=== PATIENT | female | born 1960 | race Caucasian/White ===

== ENCOUNTER 2020-11-05 17:24 | Outpatient (NON) | payer BC, SELFPAY | END 2020-11-05 17:25 | LOC: ANHLAB 17:26 | PROVIDERS: PCP Family Medicine; Visit Provider Otolaryngology | DX: J34.89 Other specified disorders of nose and nasal sinuses (principal); G96.00 Cerebrospinal fluid leak, unspecified | CPT/HCPCS: 36415 ==

== ENCOUNTER 2020-11-08 08:15 | Outpatient (CLI) | payer BC, SELFPAY ==
--- NOTE | ~2020-11-08 | MM_ITS ---
EXAMINATION: MM screening [facility] BI w rj HISTORY: Screening mammogram TECHNIQUE: Craniocaudal and mediolateral oblique 3-D tomosynthesis images were obtained and synthetic 2-D images were generated. CAD analysis was submitted and interpreted. COMPARISON: 11/03/2019, 10/13/2018, 10/11/2017 BREAST PARENCHYMAL COMPOSITION: The breasts are heterogeneously dense, which may obscure small masses . FINDINGS: There is no evidence of suspicious mass, calcification, or architectural distortion to sugg est malignancy in either breast. There has been no suspicious interval change. IMPRESSION: 1. No mammographic evidence of malignancy. 2. Recommend routine screening mammography in one year. BI-RADS Category 1: Negative Reviewed, dictated and finalized at location A. NESS SPA MANAGER
== END 2020-11-08 08:16 | disposition home or self-care (01) ==
LOC: ANHIMG 08:19
PROVIDERS: PCP Family Medicine; Visit Provider Obstetrics & Gynecology
DX: Z12.31 Encounter for screening mammogram for malignant neoplasm of breast (principal)
CPT/HCPCS: 77063; 77067

== ENCOUNTER 2021-11-18 08:23 | Outpatient (CLI) | payer BC, SELFPAY ==
--- NOTE | ~2021-11-18 | MM_ITS ---
EXAMINATION: MM screening [facility] BI w rj HISTORY: Screening TECHNIQUE: Craniocaudal and mediolateral oblique 3-D tomosynthesis images were obtained and synthetic 2-D images were generated. CAD analysis was submitted and interpreted. COMPARISON: Comparison to multiple prior studies sequentially, with oldest reviewed study dated 08/01. BREAST PARENCHYMAL COMPOSITION: The breasts are heterogenously dense, which may obscure small masses. FINDINGS: There is no evidence of suspicious mass, calcification, or architectural distortion to sugg est malignancy in either breast. There has been no suspicious interval change. IMPRESSION: 1. No mammographic evidence of malignancy. 2. Recommend routine screening mammography in one year. BI-RADS Category 1: Negative Reviewed, dictated and finalized at location A. H OUT CREW MEMBER
== END 2021-11-18 08:24 | disposition home or self-care (01) ==
LOC: ANHIMG 08:27
PROVIDERS: PCP Family Medicine; Visit Provider Obstetrics & Gynecology
DX: Z12.31 Encounter for screening mammogram for malignant neoplasm of breast (principal)
CPT/HCPCS: 77063; 77067

== ENCOUNTER 2022-08-27 16:55 | Outpatient (CLI) | payer BC, SELFPAY ==
--- NOTE | ~2022-08-27 | XR_ITS ---
EXAMINATION: XR chest 2V 08/27/2022 17:08 INDICATION: Cough. PROCEDURE: 2 view chest COMPARISON: 11/17/2017 FINDINGS: The lungs are clear. The cardiomediastinal silhouette is within normal limits. There are no pleural effusions. There is no pneumothorax suspected. IMPRESSION: 1: NO ACUTE CARDIOPULMONARY DISEASE. Reviewed, dictated and finalized at location B.
== END 2022-08-27 16:56 | disposition home or self-care (01) ==
LOC: ANHIMG 16:57
PROVIDERS: PCP Family Medicine; Visit Provider Nurse Practitioner
DX: R05.9 Cough, unspecified (principal)
CPT/HCPCS: 71046

== ENCOUNTER 2022-11-20 08:44 | Outpatient (CLI) | payer BC, SELFPAY ==
--- NOTE | ~2022-11-20 | MM_ITS ---
EXAMINATION: MM screening [facility] BI w rj HISTORY: Screening mammogram TECHNIQUE: Craniocaudal and mediolateral oblique 3-D tomosynthesis images were obtained and synthetic 2-D images were generated. CAD analysis was submitted and interpreted. COMPARISON: 11/18/2021, 11/08/2020, 11/03/2019 BREAST PARENCHYMAL COMPOSITION: The breasts are heterogeneously dense, which may obscure small masses . FINDINGS: RIGHT BREAST: No suspicious mass, calcification, or architectural distortion are identified to sugges t malignancy. There has been no suspicious interval change. LEFT BREAST: There is a possible mass in the middle third of the outer breast best appreciated 5 cm f rom the nipple on the craniocaudal view. IMPRESSION: 1. Possible left breast mass. 2. Additional mammographic views and possible breast ultrasound are recommended. BI-RADS Category 0: Incomplete: Needs additional imaging evaluation. Reviewed, dictated and finalized at location A. CLEANER IMPRESSION: 1. Possible left breast mass. 2. Additional mammographic views and possible breast ultrasound are recommended . BI-RADS Category 0: Incomplete: Needs additional imaging evaluation.
== END 2022-11-20 08:45 | disposition home or self-care (01) ==
LOC: ANHIMG 08:46
PROVIDERS: PCP Family Medicine; Visit Provider Obstetrics & Gynecology
DX: Z12.31 Encounter for screening mammogram for malignant neoplasm of breast (principal); R92.8 Other abnormal and inconclusive findings on diagnostic imaging of breast
CPT/HCPCS: 77063; 77067

== ENCOUNTER 2022-12-17 13:14 | Outpatient (CLI) | payer BC, SELFPAY ==
--- NOTE | ~2022-12-17 | MMUS_ITS ---
EXAMINATION: MM diagnostic [facility] LT w rj, US breast LT limited HISTORY: Possible mass in middle third of outer left breast reported on 11/20/2022 screening mammogram TECHNIQUE: Additional 3-D tomosynthesis images of the left were performed and synthetic 2-D images we re generated. CAD analysis was submitted and interpreted. High resolution upper outer and lower-outer quadrant left breast ultrasound was performed. COMPARISON: 11/20/2022 bilateral screening mammogram FINDINGS: MAMMOGRAPHIC FINDINGS: No suspicious mass or architectural distortion, malignant calcification, skin thickening or retractio n is evident on these supplemental views. ULTRASOUND: Ultrasound imaging of the upper outer and lower-outer quadrants of the left breast was performed. 2:00 2 cm from nipple: 3.6 x 5.3 mm simple cyst without internal vascularity or posterior shadowing. No other significant abnormality. IMPRESSION: 1. Benign 5.3 mm cyst at breast 2:00 2 cm from nipple 2. Routine annual mammographic screening is recommended BI-RADS Category 2: Benign finding(s). Reviewed, dictated and finalized at location A. SH MIXER IMPRESSION: 1. Benign 5.3 mm cyst at breast 2:00 2 cm from nipple 2. Routine annual mammographic screening is recommended BI-RADS Category 2: Benign finding(s).
== END 2022-12-17 13:15 | disposition home or self-care (01) ==
PROVIDERS: PCP Family Medicine; Visit Provider Obstetrics & Gynecology
DX: R92.8 Other abnormal and inconclusive findings on diagnostic imaging of breast (principal)
CPT/HCPCS: 76642; 77061; 77065; G0279

== ENCOUNTER → 2023-02-16 13:59 | Outpatient (CLI) | payer BC, SELFPAY ==
--- NOTE | ~2023-02-16 | XR_ITS ---
EXAMINATION: XR chest 2V 02/16/2023 14:09 INDICATION: Shortness of breath and cough PROCEDURE: 2 view chest COMPARISON: 08/27/2022 FINDINGS: The lungs are clear. The cardiomediastinal silhouette is within normal limits. There are no pleural effusions. There is no pneumothorax suspected. IMPRESSION: 1: NO ACUTE CARDIOPULMONARY DISEASE. Reviewed, dictated and finalized at location A.
== END ==
PROVIDERS: PCP Family Medicine; Visit Provider Family Medicine
DX: R06.02 Shortness of breath (principal)
CPT/HCPCS: 71046

== ENCOUNTER 2023-03-08 08:08 | Outpatient (CLI) | payer BC, SELFPAY ==
--- NOTE | ~2023-03-08 | CT_ITS ---
EXAMINATION: CTA chest PE protocol DATE: 03/08/2023 08:38 CDT INDICATION: Shortness of breath and chest pain TECHNIQUE: Computed tomographic angiography (CTA) of the chest was performed with 100 mL Omnipaque-35 0 intravenous contrast. The dose-length product was 180.01 mGy-cm. Maximum intensity projection 3D-re constructions of the aorta and other arteries were constructed by the technologist on a separate work station. Automated exposure control and iterative reconstruction technique were employed. COMPARISON: None. FINDINGS: Study is technically adequate without evidence for pulmonary embolism. No thoracic lymphade nopathy. No significant pleural or pericardial effusion. No endobronchial lesions. No focal airspace consolidation. No pneumothorax. No suspicious pulmonary nodules or masses. Mild thoracic lymphadenopa thy. IMPRESSION: 1. No acute cardiopulmonary disease. No evidence for pulmonary embolism. Reviewed, dictated and finalized at location B.
[2023-03-08 08:29] LABS: Estimated Glomerular Filt Rate > 60
--- NOTE | 2023-03-08 16:55 | WPDPFTINT ---
PFT Procedure Performed PFT Procedure Performed Spirometry with Pre/Post Bronchodilator Plethysmography (Lung Vol) Diffusing Cap (DLCO) Flow Vol Loop PFT Interpretation This is a pulmonary function test with pre and post-bronchodilator spirometry, plethysmography and diffusing capacity. The test was performed and results interpreted in accordance with the 2019 and 2005 ATS/ERS Task Force guidelines respectively using the Global Lung Function Initiative-2012 reference equations. Patient demonstrated good effort and cooperation. Reproducibility criteria were met. The quality of the pre bronchodilator spirometry maneuver was Grade A and post bronchodilator spirometry maneuver was Grade A. Findings: Spirometry: The contour the inspiratory and expiratory flow tracing are normal. The pre bronchodilator FVC is 3.68 L, 116% predicted. The pre bronchodilator FEV1 is 2.69 L, 108% predicted. The pre bronchodilator FEV1: FVC ratio 73%. The post bronchodilator FVC is 3.47 L, representing a 6% decrease. The post bronchodilator FEV1 is 2.79 L, representing a 4% increase. The post bronchodilator FEV1: FVC ratio is 80%. Plethysmography: The total lung capacity is 4.98 L, 96% predicted. The functional residual capacity is 2.74 L, 93% predicted. The residual volume is 1.30 L, 62% predicted. Diffusion capacity: The diffusing capacity unadjusted for hemoglobin and carboxyhemoglobin is 20.8, 96% predicted. The diffusing capacity adjusted for alveolar volume is 4.29, 99% predicted. Impression: The spirometry is normal without evidence of an obstructive abnormality. There is no significant improvement after inhaling a single dose of albuterol. The lung volumes are normal. The diffusing capacity is normal. There are no prior studies for comparison
== END 2023-03-08 08:09 | disposition home or self-care (01) ==
PROVIDERS: Visit Provider Physician Assistant
DX: R06.02 Shortness of breath (principal)
CPT/HCPCS: 71275; 94060; 94726; 94729; Q9967

== ENCOUNTER 2023-12-31 09:44 | Outpatient (CLI) | payer BC, SELFPAY ==
--- NOTE | ~2023-12-31 | MM_ITS ---
EXAMINATION: MM screening [facility] BI w rj HISTORY: Screening TECHNIQUE: Craniocaudal and mediolateral oblique 3-D tomosynthesis images were obtained and synthetic 2-D images were generated. CAD analysis was submitted and interpreted. COMPARISON: Comparison to multiple prior studies sequentially, with oldest reviewed study dated 10/01. BREAST PARENCHYMAL COMPOSITION: The breasts are heterogeneously dense, which may obscure small masses . FINDINGS: There is a new mass in the upper outer quadrant of the left breast. The right breast is sta ble without evidence for malignancy. IMPRESSION: 1. New left breast mass, upper outer quadrant. 2. Additional mammographic views and possible breast ultrasound are recommended. BI-RADS Category 0: Incomplete: Needs additional imaging evaluation. Reviewed, dictated and finalized at location A. HER AIDE IMPRESSION: 1. New left breast mass, upper outer quadrant. 2. Additional mammographic views and possible breast ultrasound are recommended . BI-RADS Category 0: Incomplete: Needs additional imaging evaluation.
== END 2023-12-31 09:45 | disposition home or self-care (01) ==
LOC: ANHIMG 09:48
PROVIDERS: PCP Family Medicine; Visit Provider Obstetrics & Gynecology
DX: Z12.31 Encounter for screening mammogram for malignant neoplasm of breast (principal); R92.8 Other abnormal and inconclusive findings on diagnostic imaging of breast
CPT/HCPCS: 77063; 77067

== ENCOUNTER 2024-01-21 13:10 | Outpatient (CLI) | payer BC, SELFPAY ==
--- NOTE | ~2024-01-21 | MMUS_ITS ---
EXAMINATION: MM diagnostic patrick LT w rj, US breast LT limited HISTORY: Follow-up left breast mass TECHNIQUE: Additional 3-D tomosynthesis images of the left breast were performed and synthetic 2-D im ages were generated. CAD analysis was submitted and interpreted. High resolution Limited left breast ultrasound was performed. COMPARISON: Comparison to multiple prior studies sequentially, with oldest reviewed study dated 12/2019. BREAST PARENCHYMAL COMPOSITION: Dense: The breasts are heterogeneously dense, which may obscure small masses FINDINGS: MAMMOGRAPHIC FINDINGS: There are no suspicious masses, calcifications or architectural distortion in the left breast to sugg est malignancy. ULTRASOUND: Limited left breast ultrasound: Normal heterogeneous echotexture without focal solid or cystic mass. IMPRESSION: 1. No evidence for malignancy in the left breast. 2. Routine yearly screening mammogram and regular clinical breast examination are recommended. BI-RADS Category 1: Negative Reviewed, dictated and finalized at location A. IMPRESSION: 1. No evidence for malignancy in the left breast. 2. Routine yearly screening mammogram and regular clinical breast examination a re recommended. BI-RADS Category 1: Negative
== END 2024-01-21 13:11 | disposition home or self-care (01) ==
LOC: ANHIMG 13:13
PROVIDERS: PCP Family Medicine; Visit Provider Obstetrics & Gynecology
DX: R92.8 Other abnormal and inconclusive findings on diagnostic imaging of breast (principal)
CPT/HCPCS: 76642; 77061; 77065; G0279

== ENCOUNTER 2024-11-09 11:05 | Outpatient (CLI) | payer MEDICARE, BC, SELFPAY ==
--- NOTE | ~2024-11-09 | DEXA_ITS ---
Bone Density Report Name: JOSE BRITT Age: 64 Sex: Female Ethnicity: White Date of : 1960 Indication: postmenopausal; screening for osteoporosis; height loss; Referring Provider: ESTRELLA, HAMILTON Ramirez Study: Bone densitometry was performed. Exam Date: November 09, 2024 Accession number: [id number] Bone Density: Region BMD T-score Z-score Classification AP Spine(L1-L4) 1.117 0.6 2.4 Normal Femoral Neck (Left) 0.655 -1.7 -0.2 Osteopenia Total Hip (Left) 0.820 -1.0 0.2 Normal Femoral Neck (Right) 0.643 -1.9 -0.3 Osteopenia Total Hip (Right) 0.797 -1.2 0.0 Osteopenia Total Hip Mean 0.808 -1.1 0.1 Osteopenia World Health Organization criteria for BMD impression classify patients as: Normal (T-score at or above -1.0), Osteopenia (T-score between -1.0 and -2.5), or Osteoporosis (T-score at or below -2.5). 10-year Fracture Risk(1): Major Osteoporotic Fracture 9.6% Hip Fracture 1.3% Reported Risk Factors: [place] (), Neck BMD=0.643, BMI=23.2 (1) FRAX(R) Version 3.08. Fracture probability calculated for an untreated patient. Fracture probability may be lower if the patient has received treatment. Clinical Information Provided by Patient: Patient maximum height was 65 No regular weight bearing exercise Does not regularly consume dairy products Drinks caffeinated beverages Onset of menses at age 9 Number of children 1 Impression: The patient has low bone mass, based on the Right Femoral Neck T-score. The patient has an estimated ten-year risk of hip fracture of 1.3% and an estimated ten-year risk of major fracture of 9.6%, based on the WHO FRAX algorithm. Discussion: BONE DENSITY IS LOW AT ONE OR MORE SKELETAL SITES. This patient's lowest T-score is low at one or more skeletal sites. It meets the World Health Organization's (WHO) criteria for ?low bone mass? (T-score between -1.0 and -2.5). The patient's 10-year risk of fracture as calculated by FRAX is less than the threshold where pharmacological therapy is recommended by the National Osteoporosis Foundation (NOF). However, all treatment decisions require clinical judgment and consideration of individual patient factors, including patient preferences, comorbidities, previous drug use, risk factors not captured in the FRAX model (e.g., frailty, falls, vitamin D deficiency, increased bone turnover, interval significant decline in bone density) and possible under or overestimation of fracture risk by FRAX. The patient should follow a healthful lifestyle (good nutrition with adequate calcium and vitamin D, and appropriate weight-bearing exercise). Follow-Up: Consider repeating this study in 2 to 3 years to reassess this patient's status, or sooner if there is some new clinical indication. Reported by: ZAHRA on 11/09/2024 11:40:00 AM. Reviewed, dictated and finalized at location A. [facility]
== END 2024-11-09 11:06 | disposition home or self-care (01) ==
LOC: ANHIMG 11:11
PROVIDERS: PCP Nurse Practitioner; Visit Provider Obstetrics & Gynecology
DX: N95.1 Menopausal and female climacteric states (principal); M85.852 Other specified disorders of bone density and structure, left thigh; M85.851 Other specified disorders of bone density and structure, right thigh
CPT/HCPCS: 77080

== ENCOUNTER 2025-02-03 10:23 | Outpatient (CLI) | payer MEDICARE, BC, SELFPAY ==
--- NOTE | ~2025-02-03 | MM_ITS ---
EXAMINATION: MM screening patrick BI w rj HISTORY: Screening TECHNIQUE: Craniocaudal and mediolateral oblique 3-D tomosynthesis images were obtained and synthetic 2-D images were generated. CAD analysis was submitted and interpreted. COMPARISON: Comparison to multiple prior studies sequentially, with oldest reviewed study dated 06/2021. BREAST PARENCHYMAL COMPOSITION: Dense: The breasts are heterogeneously dense, which may obscure small masses FINDINGS: There is no evidence of suspicious mass, calcification, or architectural distortion to sugg est malignancy in either breast. There has been no suspicious interval change. IMPRESSION: 1. No mammographic evidence of malignancy. 2. Recommend routine screening mammography in one year. BI-RADS Category 1: Negative Reviewed, dictated and finalized at location A.
--- OUTSIDE RECORDS SUMMARY | 2025-02-03 10:26 | XMS_ITS | Clinical Summary ---
Author Organization [facility] Address [address] [place] [address] Phone Care Team Providers Care Meat Boner Name Role Phone Clayton Jones MD Primary Care Provider Unavailab Daniele Petit DO Unavailable [phone] Allergies Active Allergy Reactions Criticality Noted Date Comments Codeine Unknown 04/08/2017 Medications polyethylene glycol (MIRALAX) Powder Mix the entire bottle with 64 oz of a clear liquid. Use as directed by the office for colonoscopy prep. 255 g 0 7 Active buPROPion SR (WELLBUTRIN SR) 150 MG TABLET SR 12 HR Take 1 Tab by mouth daily. 11 7 Active gabapentin (NEURONTIN) 300 MG Capsule Take 2 Caps by mouth daily. 0 7 Active fludrocortisone (FLORINEF) 0.1 MG Tablet Take 1 Tab by mouth daily. 1 7 Active Aspirin 81 MG Tablet Take 81 mg by mouth daily. Active Acetaminophen (TYLENOL 8 HOUR PO) Take by mouth. Activ e Family History Medical History Relation Name Comments Heart Disease Father Macular Degeneration Father Macular Degeneration Mother Diabetes Other Grandmother Relation Name Status Comments Father Mother Other Social History Tobacco Use Types Packs/Day Years Used Date Smoking Tobacco: Former Cigarettes 1 5 0 04/08/1978 - 04/08/1983 Smokeless Tobacco: Never Alcohol Use Standard Drinks/Week Comments Yes 0 (1 standard drink = 0.6 oz pur e alcohol) Rare Comments Unknown Sex and Gender Information Value Date Recorded Sex Assigned at Not on file Legal Sex Female 11:05 PM CDT Gender Identity Not on file Sexual Orientation Not on file Plan of Treatment Health Maintenance Due Date Last Done Comments DEXA Bone Density 1960 Hepatitis C Virus (HCV) Screening 1960 TdaP Immunization 1960 Pap Smear 1980 Cervical Cancer Screening (CCS) 1989 HPV/Cotest 1989 Cologuard 2009 Immunochemical Fecal Occult Blood 2009 Mammogram 2009 Pneumococcal Immunization (5 0+ years) (1 of 1 - PCV) 2009 Zoster Immunization (1 of 2) 2009 Colonoscopy 03/25/2022 03/25/2017 Colorectal Cancer Screening 03/25/2022 Influenza Immunization (#1) 2024 SARS-COV-2 Immunization (1 - 2023- season) 2024 Respiratory Syncytial Virus (RSV) Immunization (Adult) (1 - 1-dose 75+ series) 2034 03/25/2017 Hepatitis B Immunization Aged Out No longer eligible based on patient's age to complete this topic Meningococcal Immunization (ACWY) Aged Out No longer eligible based on patient's age to complete this topic Pneumococcal Immunization Combined Aged Out No longer eligible based on patient's age to complete this topic Rotavirus Immunization Aged Out No lo nger eligible based on patient's age to complete this topic Procedures Procedure Name Priority Date/Time Associated Diagnosis Comments COLONOSCOPY Routine 03/25/2017 from Last 3 Months or Most Recently Relevant to Health Maintenance Results * COLONOSCOPY (03/25/2017) Arnoldo Currie MD PROCEDURE/MINOR SURGICAL SHANKAR DELATORRE Final Result from Last 3 Months or Most Recently Relevant to Health Maintenance Insurance [facility] Care Teams Meat Boner Relationship Specialty Start Date End Date Clayton Jones MD PCP - General Recreation Establishment Manager 12/07/16 Daniele Mckeon DO Consulting Physician Gastroenterology 03/25/17
--- OUTSIDE RECORDS SUMMARY | 2025-02-03 10:26 | XMS_ITS | Clinical Summary ---
Author Organization [facility] Address [address] [place] [address] Care Team Providers Care Senior Technical Trainer Name Role Phone Unknown, Provider Primary Care Provider Unavaila ble Source Comments [facility],non-owned Affiliates and Associated Physician Practices is amultiple site organization consisting of ambulatory clinics and hospital sitesin [place] and [place]. This disclosure is being madepursuant to the Care Everywhere program and may not contain all information available regarding this patient. Last updated 18.[facility] Allergies Active Allergy Reactions Criticality Noted Date Comments Codeine Anaphylaxis High 10/07/2021 Contrast-Iodinated Agents For Ct/Other Rash Medium 05/05/2018 Midodrine Nausea and/or Vomiting Low 08/07/2019 Bradycardia--vasov agal episodes Minocycline Urticaria Medium 10/07/2021 Medications * Be aware that medications may not be up to date on this document. Alwaysverify current medications with the patient. Medication Sig Dispensed Refills Start Date End Date Status cycloSPORINE (RESTASIS) 0.05 % ophthalmic suspension 09/02/2021 Act christiano DULoxetine (CYMBALTA) 30 MG capsule Take 30 mg by mouth once daily 09/17/2021 Active hydroxychloroquine (PLAQUENIL) 200 MG tablet Take 200 mg by mouth 2 times daily Active fludrocortisone (FLORINEF) 0.1 MG tablet TAKE 2 TABLETS(0.2 MG) BY MOUTH DAILY 08/25/2021 Active valACYclovir (VALTREX) 500 MG tablet Take 1 tablet by mouth 2 times daily 04/14/2021 Active SUMAtriptan (IMITREX) 50 MG tablet Take 50 mg by mouth 09/17/2021 Act christiano aspirin buffered (BUFFERIN LOW DOSE) 81 MG tablet Take 81 mg by mouth once daily Active albuterol HFA (PROVENTIL; VENTOLIN; PROAIR) 108 (90 Base) MCG/ACT inhaler Inhale 2 (two) puffs by mouth every 6 hours as needed for Wheezing or Cough 1 g 10/07/2021 Active fluticasone propionate (FLONASE) 50 MCG/ACT nasal spray [place] 2 (two) sprays into each nostril once daily 1 Each 10/07/2021 Active Active Problems Problem Noted Date Diagnosed Date Menopause present 07/26/2020 Mild obstructive sleep apnea 07/03/2020 Tear of meniscus of knee joint 03/10/2018 Swelling of right lower extremity 11/16/2017 Cervical radiculopathy 01/21/2017 Carpal tunnel syndrome 09/15/2016 Numbness of hand 09/15/2016 Hay fever 12/10/2015 Hyperlipidemia 09/17/2015 Mitral valve prolapse 09/17/2015 Hypotension 05/17/2014 Positive D-dimer 05/17/2014 Injury of foot 12/07/2012 Arthralgia of hip 12/21/2011 Social History Tobacco Use Types Packs/Day Years Used Date Smoking Tobacco: Never Assessed Tobacco Cessation:Counseling Given: No Sex and Gender Information Value Date Recorded Sex Assigned at Not on file Gender Identity Not on file Sexual Orientation Not on file Last Filed Vital Signs Vital Sign Reading Time Taken Comments Blood Pressure 100/80 10/07/2021 4:22 PM ENVIRONMENTAL CONSTRUCTION ENGINEER Pulse 91 10/07/2021 4:22 PM ENVIRONMENTAL CONSTRUCTION ENGINEER Temperature 37 C (98.6 F) 10/07/2021 4:22 PM ENVIRONMENTAL CONSTRUCTION ENGINEER Respiratory Rate 18 10/07/2021 4:22 PM ENVIRONMENTAL CONSTRUCTION ENGINEER Oxygen Saturation 98% 10/07/2021 4:22 PM ENVIRONMENTAL CONSTRUCTION ENGINEER Inhaled Oxygen Concentration - - Weight 55.3 kg (122 lb) 10/07/2021 4:22 PM ENVIRONMENTAL CONSTRUCTION ENGINEER Height 162.6 cm (5' 4 ) 10/07/2021 4:22 PM ENVIRONMENTAL CONSTRUCTION ENGINEER Body Mass Index 20.94 10/07/2021 4:22 PM ENVIRONMENTAL CONSTRUCTION ENGINEER Plan of Treatment Health Maintenance Due Date Last Done Comments BONE DENSITY TESTING 1960 COLOGUARD (AGES 45-75) - COLON CA SCREENING 1960 COLON MONITORING 1959 COLONOSCOPY - COLON CA SCREENING 1959 CT COLONOGRAPHY - COLON CA SCREENING 1960 Colorectal Cancer Screening 1959 FIT - COLON CA SCREENING 1959 FLEX SIG - COLON CA SCREENING 1959 LIPID TESTING 1960 MAMMOGRAM 1960 PAP SMEAR 1959 HIV SCREENING 1974 HEPATITIS C SCREENING 09/04/1977 DTAP/TDAP/TD VACCINES (1 - Tdap) 1978 PNEUMOCOCCAL VACCINE 50+ (1 of 1 - PCV) 2009 ZOSTER VACCINE (1 of 2) 2009 COVID-19 VACCINE (4 - season) 2024 08/11/2021, 12/12/2020, 11/20/2020 INFLUENZA VACCINE (#1) 2024 , 2020, 09/04/2019, Additional history exists DEPRESSION SCREENING 11/01/2024 Respiratory Syncytial Virus (RSV) Vaccine Pt: or over 60 yrs (1 - 1-dose 75+ series) 2034 HEPATITIS B VACCINE Aged Out No longe r eligible based on patient's age to complete this topic HIB VACCINE Aged Out No longer eligi ble based on patient's age to complete this topic HPV VACCINE Aged Out No longer eligi ble based on patient's age to complete this topic MENINGOCOCCAL (Group B) VACCINE SHARED DECISION-MAKING Aged Out No longer eligible based on patient's age to complete this topic MENINGOCOCCAL GROUPS A/C/Y/W VACCINE Aged Out No longer eligible based on patient's age to complete this topic Care Teams Senior Technical Trainer Relationship Specialty Start Date End Date Unknown, Provider PCP - General 10/07/21
--- OUTSIDE RECORDS SUMMARY | 2025-02-03 10:26 | XMS_ITS | Clinical Summary ---
Author Organization [facility] Address [address] Attn: Epic Prelude ADT [place] [address] Care Team Providers Care Performance Solutions Specialist Name Role Phone Unavailable Primary Care Provider Unavailabl e Social History Tobacco Use Types Packs/Day Years Used Date Smoking Tobacco: Never Assessed Comments Unknown Sex and Gender Information Value Date Recorded Sex Assigned at Not on file Legal Sex Female 11:06 PM CDT Gender Identity Not on file Sexual Orientation Not on file Plan of Treatment Health Maintenance Due Date Last Done Comments DTAP/TDAP/TD VACCINES (1 - Tdap) 1978 BREAST CANCER SCREENING 1999 COLORECTAL SCREENING 2004 Colorectal Cancer Screening 2004 FIT-DNA Q 3 years 2004 FIT/FOBT Q 1 year 2004 Flex Sig/CT Colonography Q 5 years 2004 PNEUMOCOCCAL VACCINE 50+ YEARS (1 of 1 - PCV) 09/09/20 ZOSTER VACCINE (1 of 2) 2009 INFLUENZA VACCINE (#1) 2024 OSTEOPOROSIS SCREENING 2024 RSV VACCINE (60+ or ) (1 - 1-dose 75+ series) 2034
--- OUTSIDE RECORDS SUMMARY | 2025-02-03 10:26 | XMS_ITS | Data Portability ---
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 Vagifem seem to finally have kicked in. 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 Not available 09/04/2024 11:27:23 Plan of Treatment Reminders Order Date Submit Date Provider Last Modified By Organization Details Last Modified Time Details Appointments ANNUAL 30 2024 10:30A M Hamilton De La Rosa MD Not available Not available Not available Lab cytology report, thin prep, smear or scraping, cervical or vaginal 2021 022 [facility], [address] [facility] [address], [place], [address], 08/28/2022 11:14:47 Referral None recorded. Procedures None recorded. Surgeries None recorded. Imaging MAMMO, screening , digital, bilateral - please fax results to office at [phone] 2023 024 [facility], [address] [place] [address], [id number], 02/02/2025 14:20:39 bone density 2023 024 [facility], [address] [place] [address], [id number], 11/17/2024 11:17:02 MAMMO, screening , digital, bilateral 2022 023 [facility], [address] [place] [address], [id number], 01/03/2024 09:21:53 MAMMO, screening , digital, bilateral 2021 022 [facility], [address] [place] [address], [id number], 11/19/2022 09:29:42 MAMMO, screening , digital, bilateral 2020 021 [facility], [address] [place] [address], [address], 11/18/2021 10:26:41 Medication Orders Vagifem 10 mcg vaginal tablet 2022 023 [id number], [address], [place], [phone], 09/02/2023 10:54:36 Vagifem 10 mcg vaginal tablet 2020 021 [id number], [address], [place], [phone], 07/29/2021 16:33:51 Vagifem 10 mcg vaginal tablet 2020 021 [id number], [address] [place], [phone], 01/22/2021 03:33:05 Patient TargetsNo targets recorded. Patient Instructions Encounter Date Encounter Id Patient Instructions Last Modified By Organization Details Last Modified Time 01/21/2021 [id number] atrophic vaginitis: care instructions Not available 01/21/2021 11:34:59 07/29/2021 [id number] learning about breast cancer screening Not available 07/29/2021 16:33:31 08/21/2022 [id number] learning about breast cancer screening Not available 08/21/2022 12:07:19 09/02/2023 [id number] learning about breast cancer screening Not available 09/02/2023 10:36:42 09/04/2024 [id number] mammogram: about this test Not available 09/04/2024 11:14:52 Reason for Referral None Reported. Results Created Date Observation Date Name Description Value Unit Range Abnormal Flag Note LastModifiedBy Organization Detail LastModifiedTime 08/21/2008/28/2022 IGP, RFX APTIM A HPV ASCU diagnosis: Commen t NEGAT GHAZALA FOR INTRA EPITH ELIAL LESIO N OR SANAZ GARBER . Not Available [facility] ([facility]) [address] [facility], [place], [address], 08/28/2022 11:14:46 08/21/2008/28/2022 IGP, RFX APTIM A HPV ASCU specimen adequacy: Commen t Satis facto ry for evalu ation . No endoc ervic al compo nent is ident ified . Not Available [facility] ([facility]) [address] [facility], [place], [address], 08/28/2022 11:14:46 08/21/2008/28/2022 IGP, RFX APTIM A HPV ASCU clinician provided ICD10: Duc licea Z01.4 19 Not Available [facility] ([facility]) [address] [place], [address], 08/28/2022 11:14:46 08/21/20 22 08/28/2022 IGP, RFX APTIM A HPV ASCU performed by: Aileen Moreno (ASCP ) Not Available [facility] ([facility]) [address] [place], [address], 08/28/2022 11:14:46 08/21/2008/28/2022 IGP, RFX APTIM A HPV ASCU . . Not Available [facility] ([facility]) [address] [place], [address], 08/28/2022 11:14:46 08/21/2008/28/2022 IGP, RFX APTIM A HPV ASCU note: Duc licea The Pap smear is a scree tasneem test desig demetris to aid in the detec tion of wilmar ligna nt and malig nant condi tions of the uteri ne cervi x. It is not a diagn ostic proce dure and shoul d not be used as the sole means of detec ting cervi warren cance r. Both false -posi tive and false -nega tive repor ts do occur . Not Available [facility] ([facility]) [address] [place], [address], 08/28/2022 11:14:46 08/21/20 22 08/28/2022 IGP, RFX APTIM A HPV ASCU test methodology: Duc licea This liqui d based ThinP rep(R ) pap test was scree demetris with the use of an image guide jorje ragland. Not Available [facility] ([facility]) [address] [place], [address], 08/28/2022 11:14:46 08/21/20 22 08/28/2022 IGP, RFX APTIM A HPV ASCU . Commen t The HPV DNA refle x crite ramiro were not met with this speci men resul t there fore, no HPV testi ng was perfo rmed. Not Available [facility] ([facility]) [address] [facility], [place], [address], 08/28/2022 11:14:46 11/18/19 22 11/18/2021 MAMMO , scree tasneem, digit al, bilat eral No observ ation record ed. [address] [facility], [place], [address], 11/18/2021 10:33:41 11/23/19 23 11/20/2022 MAMMO , scree tasneem, digit al, bilat eral No observ ation record ed. [address] [facility], [place], [address], 11/27/2022 10:31:05 12/18/19 23 12/17/2022 MAMMO , diagn ostic , unila teral No observ ation record ed. [address] [facility], [place], [address], 12/18/2022 12:24:38 12/18/19 23 US, bregwen t, unila teral No observ ation record ed. [address] [facility], [place], [address], 12/18/2022 12:24:38 12/31/19 24 12/31/2023 MAMMO , scree tasneem, digit al, bilat eral No observ ation record ed. [address] [facility], [place], [address], 01/03/2024 11:33:50 01/24/20 24 01/21/2024 MAMMO , diagn ostic , unila teral No observ ation record ed. [address] [address], [place], [address], 01/24/2024 15:06:04 11/17/19 25 11/09/2024 bone densi ty No observ ation record ed. [address], [address], 11/27/2024 12:33:05 Result Notes None recorded. Problems Name Problem SNOMED Code Status Onset Date Resolution Date Notes Provider Name and Address Organization Details Recorded Time Menopause present [id number] Active Hamilton De La Rosa MD Attn: Syd palacio,[address] [facility], [place], [address], [place] [facility] 6 10:07:19 Problem Notes None recorded. Procedures Surgical History Date Name Laterality Status Provider Name and Address Organization Details Recorded Time 4 Most Recent Mammogram completed Glenis Chino RN [place] - [facility] 12/31/2023 17:02:03 2 Date of Last Pap Smear completed DELBERT Molina [place] [facility] 08/21/2022 12:04:54 Imaging Results Imaging Date Name Status LastModified by [facility] Details LastModified Time 11/18/2021 MAMMO, screening, digital, bilateral completed [address], [address], 11/18/2021 10:33:41 11/20/2022 MAMMO, screening, digital, bilateral completed [address], [address], 11/27/2022 10:31:05 12/17/2022 MAMMO, diagnostic, unilateral completed [address], [address], 12/18/2022 12:24:38 12/18/2022 [place], breast, unilateral completed [address], [address], 12/18/2022 12:24:38 12/31/2023 MAMMO, screening, digital, bilateral completed [address], [address], 01/03/2024 11:33:50 01/21/2024 MAMMO, diagnostic, unilateral completed [address], [address], 01/24/2024 15:06:04 11/09/2024 bone density completed [address], [address], 11/27/2024 12:33:05 Procedure Notes None recorded. Medical Equipment None Reported. Allergies Allergen ID Allergen Name Allergen Category Reaction Reaction Severity Criticality Documentation Date Start Date Code Code System Note Provider Name and Address Organization Details Recorded Time 79136 codeine medicatio n Not available Not available Not available 06/06/2015 2670 RxNorm Not Available Not Available Not Available 86342 minocycli ne medicatio n Not available Not available Not available 07/15/2017 6980 RxNorm Not Available Not Available Not Available Medications Name Sig Start Date Stop Date Status Note LastModified by Organization Details LastModified Time senna s 8.6-50mg tablets TAKE 2 TABLETS BY MOUTH TWICE DAILY active Not Available Not Available No t Available celecoxib 200 mg capsule 01/21 completed Not Available Not Available Not Available cyclobenzap rine 10 mg tablet 01/21 completed Not Available Not Available Not Available amoxicillin 500 mg capsule TK FOUR CS PO 1 HOUR B DAPP active Not Available Not Available No t Available bupropion HCl SR 150 mg tablet,12 hr sustained-r elease TAKE 1 TABLET BY MOUTH EVERY DAY 01/21 completed Not Available Not Available Not Available prednisone 10 mg tablet 01/21 completed Not Available Not Available Not Available gabapentin 600 mg tablet TAKE 1 TABLET BY MOUTH IN THE MORNING AND 2 TABLETS IN THE EVENING active Not Available Not Available No t Available atorvastati n 10 mg tablet TAKE 1 TABLET BY MOUTH DAILY active Not Available Not Available No t Available azithromyci n 250 mg tablet TK 2 TS PO ON DAY 1, THEN TK 1 T PO D FOR 4 DAYS 08/31 completed Not Available Not Available Not Available aspirin 325 mg tablet 01/21 completed Not Available Not Available Not Available tramadol 37.5 mg-acetamin ophen 325 mg tablet 01/21 completed Not Available Not Available Not Available benzonatate 200 mg capsule 01/21 completed Not Available Not Available Not Available sumatriptan 100 mg tablet active Not Available Not Available Not Available hydrocodone 5 mg-acetamin ophen 325 mg tablet 01/21 completed Not Available Not Available Not Available meloxicam 15 mg tablet TAKE 1 TABLET BY MOUTH DAILY active Not Available Not Available No t Available olanzapine 5 mg tablet 08/31 completed Not Available Not Available Not Available Anucort-HC 25 mg suppository 01/21 completed Not Available Not Available Not Available sumatriptan 50 mg tablet active Not Available Not Available Not Available valacyclovi r 500 mg tablet TAKE 1 TABLET BY MOUTH TWICE DAILY FOR 7 DAYS active Not Available Not Available No t Available sulfamethox azole 800 mg-trimetho prim 160 mg tablet TAKE 1 TABLET BY MOUTH EVERY 12 HOURS FOR 5 DAYS 08/31 completed Not Available Not Available Not Available tramadol 50 mg tablet 08/31 completed Not Available Not Available Not Available acetaminoph en 500 mg tablet TAKE 2 TABLETS BY MOUTH EVERY 8 HOURS 08/31 completed Not Available Not Available Not Available ketorolac 10 mg tablet 01/21 completed Not Available Not Available Not Available meloxicam 7.5 mg tablet 01/21 completed Not Available Not Available Not Available amoxicillin 875 mg tablet 01/21 completed Not Available Not Available Not Available prednisolon e acetate 1 % eye drops,suspe nsion 01/21 completed Not Available Not Available Not Available benzonatate 100 mg capsule TAKE 1 CAPSULE BY MOUTH THREE TIMES DAILY NEEDED FOR COUGH 08/31 completed Not Available Not Available Not Available oseltamivir 75 mg capsule TAKE 1 CAPSULE BY MOUTH TWICE DAILY FOR 5 DAYS 08/31 completed Not Available Not Available Not Available Differin 0.1 % topical gel 01/21 completed Not Available Not Available Not Available lidocaine 5 % topical patch 01/21 completed Not Available Not Available Not Available gabapentin 300 mg capsule 01/21 completed Not Available Not Available Not Available montelukast 10 mg tablet 01/21 completed Not Available Not Available Not Available mupirocin 2 % topical ointment APPLY TOPICALLY TO THE AFFECTED AREA THREE TIMES DAILY active Not Available Not Available No t Available gabapentin 100 mg capsule 01/21 completed Not Available Not Available Not Available hydroxychlo roquine 200 mg tablet TAKE 1 TABLET BY MOUTH TWICE DAILY 08/31 completed Not Available Not Available Not Available polyethylen e glycol 3350 17 gram/dose oral powder 01/21 completed Not Available Not Available Not Available methylpredn isolone 4 mg tablets in a dose pack FOLLOW PACKAGE DIRECTION S 08/31 completed Not Available Not Available Not Available albuterol sulfate HFA 90 mcg/actuati on aerosol inhaler INHALE 2 PUFFS BY MOUTH EVERY 4 HOURS NEEDED FOR SHORTNESS OF BREATH OR WHEEZING active Not Available Not Available No t Available ipratropium bromide 42 mcg (0.06 %) nasal spray USE 2 SPRAYS IN EACH NOSTRIL THREE TIMES DAILY NEEDED FOR RHINITIS active Not Available Not Available No t Available ondansetron 4 mg disintegrat ing tablet active Not Available Not Available N ot Available fluticasone propionate 50 mcg/actuati on nasal spray,suspe nsion SHAKE LIQUID AND USE 2 SPRAYS IN EACH NOSTRIL EVERY DAY 08/31 completed Not Available Not Available Not Available fludrocorti sone 0.1 mg tablet TAKE 1/2 TABLET BY MOUTH DAILY active Not Available Not Available No t Available metronidazo le 0.75 % topical gel APPLY TO NOSE TWICE DAILY active Not Available Not Available No t Available diazepam 5 mg tablet TAKE 1 TABLET BY MOUTH 30 MINUTES PRIOR TO PROCEDURE . active Not Available Not Available No t Available amoxicillin 875 mg-potassiu m clavulanate 125 mg tablet TAKE 1 TABLET BY MOUTH EVERY 12 HOURS 08/21 completed Not Available Not Available Not Available oxycodone 5 mg tablet 08/31 completed Not Available Not Available Not Available midodrine 10 mg tablet 01/21 completed Not Available Not Available Not Available cyclosporin e 0.05 % eye drops in a dropperette INSTILL 1 DROP IN BOTH EYES TWICE DAILY active Not Available Not Available No t Available nitrofurant oin monohydrate /macrocryst als 100 mg capsule 01/21 completed Not Available Not Available Not Available duloxetine 20 mg capsule,del ayed release TK 2 CS PO D 01/21 completed Not Available Not Available Not Available duloxetine 30 mg capsule,del ayed release TAKE 1 CAPSULE BY MOUTH IN ADDITION TO 60 MG CAPSULE DAILY active Not Available Not Available No t Available duloxetine 60 mg capsule,del ayed release TAKE 1 CAPSULE BY MOUTH DAILY active Not Available Not Available No t Available pregabalin 75 mg capsule active Not Available Not Available Not Available Ziana 1.2 %-0.025 % topical gel 01/21 completed Not Available Not Available Not Available budesonide- formoterol HFA 160 mcg-4.5 mcg/actuati on aerosol inhaler INHALE 1 PUFF BY MOUTH TWICE DAILY. RINSE MOUTH WITH WATER AFTER USE. DO NOT SWALLOW active Not Available Not Available No t Available olopatadine 0.6 % nasal spray 01/21 completed Not Available Not Available Not Available estradiol 10 mcg vaginal tablet INSERT 1 TABLET VAGINALLY 3 TIMES A WEEK AT BEDTIME DIRECTED 2024 active Not Available Not Available Not Avai lable BenzEFoam Ultra 9.8 % topical 01/21 completed Not Available Not Available Not Available Stephan Zapata [facility] spacer USE DAILY active Not Available Not Available No t Available lidocaine 5 % topical ointment 01/21 completed Not Available Not Available Not Available Gel-One 30 mg/3 mL intra-artic ular syringe 01/21 completed Not Available Not Available Not Available Fluvirin 4932-0319 45 mcg (15 mcg x 3)/0.5 mL intramuscul ar suspension 01/21 completed Not Available Not Available Not Available duloxetine 40 mg capsule,del ayed release TK 1 C PO D 01/21 completed Not Available Not Available Not Available Fluvirin 5788-2095 45 mcg (15 mcg x 3)/0.5 mL intramuscul ar suspension 01/21 completed Not Available Not Available Not Available Fluvirin 45 mcg (15 mcg x 3)/0.5 mL intramuscul ar suspension 01/21 completed Not Available Not Available Not Available Xiidra 5 % eye drops in a dropperette 01/21 completed Not Available Not Available Not Available Fluvirin (PF) 45 mcg(15 mcg x3)/0.5 mL intramuscul ar syringe 01/21 completed Not Available Not Available Not Available Shingrix (PF) 50 mcg/0.5 mL intramuscul ar suspension, kit active Not Available Not Available Not Available Fluzone Quad (PF) 60 mcg(15 mcgx4)/0.5 mL intramuscul ar syringe 01/21 completed Not Available Not Available Not Available Emgality Pen 120 mg/mL subcutaneou s pen injector ADMINISTE R 1 ML UNDER THE SKIN MONTHLY active Not Available Not Available No t Available Afluria Qd (36 mos up)(PF)60 mcg (15 mcg x4)/0.5 mL IM syringe 08/31 completed Not Available Not Available Not Available ID NOW COVID-19 Test Kit TEST DIRECTED TODAY 08/31 completed Not Available Not Available Not Available BinaxNOW COVID-19 Ag Self Test kit TEST DIRECTED TODAY 08/31 completed Not Available Not Available Not Available Vitals Date Recorded Body weight Systolic blood pressure Diastolic blood pressure Provider Name and Address Organization Details Last Updated DateTime 01/21/2021 96697.31 g 138 mm[Hg] 86 mm[Hg] Keke Linda [facility] 01/21/2021 10:57:55 Date Recorded Body weight Systolic blood pressure Diastolic blood pressure Provider Name and Address Organization Details Last Updated DateTime 07/29/2021 35819.3 g 122 mm[Hg] 78 mm[Hg] Keke Linda [facility] [place] [facility] 07/29/2021 16:03:40 Date Recorded Body height Body mass index (BMI) Body weight Systolic blood pressure Diastolic blood pressure Provider Name and Address Organization Details Last Updated DateTime 08/21/2022 163.83 cm 22 kg/m2 55038.15 g 122 mm[Hg] 78 mm[Hg] Minerva Khalil [facility] [place] [facility] [place] 12:04:40 Date Recorded Body height Body mass index (BMI) Body weight Systolic blood pressure Diastolic blood pressure Provider Name and Address Organization Details Last Updated DateTime 09/02/2023 163.83 cm 22 kg/m2 90508.15 g 118 mm[Hg] 76 mm[Hg] DELBERT White [place] [facility] 3 10:33:11 Date Recorded Body height Body mass index (BMI) Body weight Systolic blood pressure Diastolic blood pressure Provider Name and Address Organization Details Last Updated DateTime 09/04/2024 163.83 cm 22.5 kg/m2 71575.79 g 124 mm[Hg] 81 mm[Hg] DELBERT White [place] [facility] 4 11:04:32 Social History Question Answer Notes LastModified by Organizat ion Details LastModified Time Tobacco Smoking Status Former Smoker DELBERT White [place] - [facility] 01/21/2021 10:57:18 What Was The Date Of Your Most Recent Tobacco Screening? 09/04/2024 Information not available 09/04/2024 How Many Children Do You Have? 1 Information not available 07/09/2015 What Is Your Current Pack Years? 10packyears Information not available 01/21/2021 What Is Your Relationship Status? Information not available 07/09/2015 At What Age Did You Start Smoking Tobacco? 19 Information not available 01/21/2021 Has Tobacco Cessation Counseling Been Provided? No Information not available 01/21/2021 How Many Years Have You Smoked Tobacco? 6 Information not available 01/21/2021 Do You Or Have You Ever Used Any Other Forms Of Tobacco Or Nicotine? No Information not available 01/21/2021 Sex: Female Functional Status None recorded. Mental Status None recorded. Family History Nothing Reported Notes:no breast ca hx Medical History Condition Response Vision or Eye Problems Y Urinary Tract Infection Y Headaches Y Heart Disease/Heart Problems Y Gynecological History Statement/Question Response Abnormal Pap N If Post Menopausal, Age at Menopause 53 STIs/STDs Y Date of Last Pap Smear 08/21/2022 Sexual Problems? N Current Control Method Menopause Most Recent Mammogram 12/31/2023 LMP Definite Obstetrics History GPAL:G 1 P 1 0 0 1 Type Value Full Term 1 Living 1 Total 1 Immunizations Vaccine Type Date Status Note Provider Nam e and Address Organization Details Recorded Time Influenza, split virus, quadrivalent, preservative 9 completed DELBERT White [facility] 08/31/2023 11:26:58 zoster recombinant 9 completed Keke Linda R[facility] [place] [facility] 08/31/2023 11:26:58 zoster recombinant 8 completed Keke [place] [facility] 08/31/2023 11:26:58 COVID-19, mRNA, LNP-S, PF, 30 mcg/0.3 mL dose 1 completed Keke Linda [place] [facility] 08/31/2023 11:26:58 COVID-19, mRNA, LNP-S, PF, 30 mcg/0.3 mL dose 1 completed Keke Linda [place] [facility] 08/31/2023 11:26:58 COVID-19, mRNA, LNP-S, PF, 30 mcg/0.3 mL dose 1 completed Keke Linda [place] [facility] 08/31/2023 11:26:58 Tdap 8 completed Keke Linda [place] [facility] 08/31/2023 11:26:58 zoster live 2 completed Keke Linda [place] [facility] 08/31/2023 11:26:58 Influenza, split virus, trivalent, preservative 3 completed [place]ke [place] [facility] 08/31/2023 11:26:58 Influenza, split virus, trivalent, preservative 1 completed [place]ke [place] [facility] 08/31/2023 11:26:58 Influenza, split virus, trivalent, preservative 2 completed [place] [facility] 08/31/2023 11:26:58 Influenza, split virus, trivalent, preservative 4 completed [place] [facility] 08/31/2023 11:26:58 Influenza, split virus, trivalent, PF 7 completed Keke Linda, [place] [facility] 08/31/2023 11:26:58 Influenza, split virus, trivalent, PF 7 completed Keke Maddi, [place] [facility] 08/31/2023 11:26:58 Influenza, split virus, trivalent, PF 5 completed Keke Linda, [place] [facility] 08/31/2023 11:26:58 Influenza, split virus, quadrivalent, PF 8 completed Keke Maddi, [place] [facility] 08/31/2023 11:26:58 Influenza, split virus, quadrivalent, PF 0 completed Keke Maddi, [place] [facility] 08/31/2023 11:26:58 Influenza, MDCK, quadrivalent, PF 3 completed Keke Linda, [place] [facility] 09/02/2023 10:25:51 Influenza, MDCK, quadrivalent, PF 2 completed Keke Linda, [place] [facility] 09/02/2023 10:25:51 Influenza, MDCK, trivalent, PF 4 completed Keke Maddi, [place] [facility] 09/04/2024 10:53:43 Past Encounters Encounter ID Performer Location Encounter Start Date Encounter Closed Date Diagnosis/Indication Diagnosis SNOMED-CT Code Diagnosis ICD10 Code Diagnosis Note [id number] [place] [address] [address] [place] [address] 07/09/2015 14:33:15 07/09/2015 16:35:24 Gynecologic examination 64358914 Menopause present 855864669 Screening for malignant neoplasm of breast 213903252 Screening for malignant neoplasm of colon 962291666 [id number] MD [place] [address] [address] [place] [address] 07/14/2016 16:02:30 07/15/2016 10:47:21 Screening for malignant neoplasm of breast 226396442 Z12.31 Menopause present 629664 006 N95.1 Screening for malignant neoplasm of colon 846040206 Z12.11 Gynecologi c examination 28139798 Z01.458 [id number] MD Neftali Lara Women ([facility]) [address] [place] [address] 07/15/2017 16:02:37 07/16/2017 10:12:35 Screening for malignant neoplasm of colon 563713560 Z12.11 Gynecologi c examination 85355449 Z01.419 Screening for malignant neoplasm of breast 264530897 Z12.31 [id number] MD Neftali Lara [address] [place] [address] 07/18/2018 12:00:00 07/20/2018 16:06:16 Screening for malignant neoplasm of colon 617696488 Z12.11 Gynecologi c examination 51917173 Z01.419 Screening for malignant neoplasm of breast 249796095 Z12.31 [id number] MD Neftali Lara 14 OB [address] [place] [address] 07/20/2019 14:35:32 07/21/2019 12:10:26 Gynecologic examination 31734980 Z01.419 Screening for malignant neoplasm of breast 109277310 Z12.31 Menopause present [id number] 006 N95.1 [id number] MD Neftali Lara [address] [place] [address] 07/22/2020 14:33:43 07/23/2020 10:20:55 Screening for malignant neoplasm of colon 190210453 Z12.11 Gynecologi c examination 11962846 Z01.419 Screening for malignant neoplasm of breast 962246121 Z12.31 Menopause present 201703 006 N95.1 [id number] MD Neftali Lara 13 [address] [place] [address] 01/21/2021 10:38:48 01/22/2021 14:07:51 Atrophic vaginitis 88700406 N95.2 Dyspareunia 80132686 N94 .10 [id number] MD Neftali Lara 13 [address] [place] [address] 07/29/2021 15:46:04 07/30/2021 13:12:10 Gynecologic examination 82081876 Z01.419 Screening for malignant neoplasm of breast 711828057 Z12.31 Menopause present 911666 006 N95.1 [id number] MD Neftali Lara 13 [address] [place] [address] 08/21/2022 11:48:40 08/26/2022 15:32:21 Gynecologic examination 06605091 Z01.419 Screening for malignant neoplasm of breast 235033506 Z12.31 Menopause present 253863 006 N95.1 [id number] MD Neftali Lara 13 [address] [place] [address] 09/02/2023 10:09:09 09/08/2023 15:19:13 Gynecologic examination 99060246 Z01.419 Screening for malignant neoplasm of breast 902839630 Z12.31 Menopause present 439942 006 N95.1 [id number] MD Neftali Lara 13 OB [address] [place] [address] 09/04/2024 10:44:10 09/05/2024 09:16:04 Screening mammography 69134539 Z12.31 Depression screening 171 899115 Z13.31 Gynecologi c examination 76975649 Z01.419 Menopause 831441334 N95. 1 Health Concerns Section Related Observation LastModified by Organization Detai ls LastModified Time None Recorded Concern Status LastModified by Organization Details LastModified Time None Recorded Advance Directives Directive None Recorded Payers Encounter Date Sequence Insurance Name Policy Number Policy Lee Covered Member ID Lee Member ID Guarantor Name 01/21/2021 2 [employer] [id number] Jessica J Ory [id number] Jessica J Ory 07/29/2021 2 [place] [id number] Jessica J Ory [id number] Jessica J Ory 08/21/2022 2 [place] [id number] Jessica J Ory [id number] Jessica J Ory 09/02/2023 2 [place] [id number] Jessica J Ory [id number] Jessica Brunson Ory 09/04/2024 2 [employer] ([place] 112 Jessica Brunson Ory [id number] Jessica Brunson Ory 09/04/2024 1 [place] Jessica Brunson Orbautista [id number] Jessica Brunson Orbautista Notes Date Note Type Note Provider Name and Address Organization Details Recorded Time 07/29/2021 text/html Annual [employer] Developer Post-MenopausalRep orted bypatient.Menopaus al Symptoms:no menopausal symptoms; normal vaginal lubrication Vaginal Bleeding:history of menopause having occurred; no history of post menopausal bleeding Urinary Symptoms:no hematuria; no incontinence; no nocturia; no urinary frequency Vulva:no genital lesion; no vulvar atrophy Vagina:normal vaginal discharge; no vaginal atrophy Breast:no breast lump; no nipple discharge; no breast pain Sexual Complaints:no sexual complaints Psychological Symptoms:no depression; no anxiety Hamilton De La Rosa MD Attn: [address] [place], [address], [facility] 07/29/2021 16:34:36 08/21/2022 text/html Annual [employer] Post-MenopausalRep orted bypatient.Menopaus al Symptoms:no menopausal symptoms; normal vaginal lubrication Vaginal Bleeding:history of menopause having occurred; no history of post menopausal bleeding Urinary Symptoms:no hematuria; no incontinence; no nocturia; no urinary frequency Vulva:no genital lesion; no vulvar atrophy Vagina:normal vaginal discharge; no vaginal atrophy Breast:no breast lump; no nipple discharge; no breast pain Sexual Complaints:no sexual complaints Psychological Symptoms:no depression; no anxiety Hamilton De La Rosa MD Attn: [address] [place], [address], [facility] 08/21/2022 14:20:07 09/02/2023 text/html Annual [employer] Post-MenopausalRep orted bypatient.Menopaus al Symptoms:no menopausal symptoms; normal vaginal lubrication Vaginal Bleeding:history of menopause having occurred; no history of post menopausal bleeding Urinary Symptoms:no hematuria; no incontinence; no nocturia; no urinary frequency Vulva:no genital lesion; no vulvar atrophy Vagina:normal vaginal discharge; no vaginal atrophy Breast:no breast lump; no nipple discharge; no breast pain Sexual Complaints:no sexual complaints Psychological Symptoms:no depression; no anxiety had left knee replaced since we saw her last. Harder than I expected Daughter Jo-Ann (RN) had a couple tough days on [employer] and now has PTSD and cant work... vagifem still being used Hamilton De La Rosa MD Attn: [address] [place], [address], [facility] 09/02/2023 10:54:58 09/04/2024 text/html Annual [employer] Developer Post-MenopausalRep orted bypatient.Menopaus al Symptoms:no menopausal symptoms; normal vaginal lubrication Vaginal Bleeding:history of menopause having occurred; no history of post menopausal bleeding Urinary Symptoms:no hematuria; no incontinence; no nocturia; no urinary frequency Vulva:no genital lesion; no vulvar atrophy Vagina:normal vaginal discharge; no vaginal atrophy Breast:no breast lump; no nipple discharge; no breast pain Sexual Complaints:no sexual complaints Psychological Symptoms:no depression; no anxiety had left knee replaced since we saw her last. Harder than I expected Daughter Jo-Ann (RN) had a couple tough days on [employer] and now has PTSD and cant work...she and 6 y.o. daughter live with Jessica and . ( very hard) vagifem still being used Hamilton De La Rosa MD Attn: [address] [place], [address], [facility] 09/04/2024 11:27:37 OBGyn Episode No OBEpisode recorded.
--- OUTSIDE RECORDS SUMMARY | 2025-02-03 10:26 | XMS_ITS | Continuity of Care Document ---
Author Organization [facility] [place] Address [address] [place] [address] Phone Care Team Providers Care Professor Of Biochemistry Name Role Phone Parsons PT,MPT,ATC, Jeff Unavailable Unavai lable Procedures Procedure Date Doc neg elder mal no plan PRES/ABSN URINE INCON ASSESS Therapeutic Activities Doc neg elder mal no plan PT Evaluation Low Complexity Therapeutic Activities Therapeutic Activities Neuromuscular Re-Ed Therapeutic Exercise Therapeutic Activities Neuromuscular Re-Ed Therapeutic Exercise Therapeutic Activities Neuromuscular Re-Ed Therapeutic Exercise Progress Note Therapeutic Activities Neuromuscular Re-Ed Therapeutic Exercise Therapeutic Activities Neuromuscular Re-Ed Therapeutic Exercise Therapeutic Activities Neuromuscular Re-Ed Therapeutic Exercise Therapeutic Activities Neuromuscular Re-Ed Therapeutic Exercise Therapeutic Activities Neuromuscular Re-Ed Therapeutic Exercise Therapeutic Activities Neuromuscular Re-Ed Therapeutic Exercise Therapeutic Activities Neuromuscular Re-Ed Therapeutic Exercise Therapeutic Activities Neuromuscular Re-Ed Therapeutic Exercise Therapeutic Activities Neuromuscular Re-Ed Therapeutic Exercise Doc neg elder mal no plan PT Evaluation Moderate Complexity Therapeutic Activities Neuromuscular Re-Ed Therapeutic Exercise Progress Note Manual Therapy Therapeutic Exercise Therapeutic Activities Hot or Cold Pack Neuromuscular Re-Ed Therapeutic Activities Neuromuscular Re-Ed Therapeutic Exercise Hot or Cold Pack Manual Therapy Therapeutic Activities Therapeutic Exercise Hot or Cold Pack Manual Therapy OT Evaluation Low Complexity Manual Therapy Therapeutic Activities Therapeutic Exercise Therapeutic Activities Neuromuscular Re-Ed Manual Therapy Hot or Cold Pack Therapeutic Exercise Therapeutic Activities Neuromuscular Re-Ed Manual Therapy Hot or Cold Pack Ultrasound Elastomere Level I OT Evaluation Low Complexity Therapeutic Exercise Therapeutic Activities Neuromuscular Re-Ed Manual Therapy Hot or Cold Pack Ultrasound PT Re-evaluation Therapeutic Exercise Therapeutic Activities Neuromuscular Re-Ed Therapeutic Exercise Therapeutic Activities Neuromuscular Re-Ed Therapeutic Exercise Therapeutic Activities Neuromuscular Re-Ed Therapeutic Exercise Therapeutic Activities Neuromuscular Re-Ed Therapeutic Exercise Therapeutic Activities Therapeutic Exercise Therapeutic Activities Neuromuscular Re-Ed PT Re-evaluation Therapeutic Exercise Therapeutic Activities Neuromuscular Re-Ed Manual Therapy Therapeutic Exercise Therapeutic Activities Neuromuscular Re-Ed Hot or Cold Pack Therapeutic Exercise Therapeutic Activities Neuromuscular Re-Ed Therapeutic Exercise Therapeutic Activities Neuromuscular Re-Ed Therapeutic Exercise Therapeutic Activities Neuromuscular Re-Ed Manual Therapy Therapeutic Exercise Therapeutic Activities Neuromuscular Re-Ed Manual Therapy PT Re-evaluation Therapeutic Exercise Therapeutic Activities Neuromuscular Re-Ed Manual Therapy Therapeutic Exercise Therapeutic Activities Manual Therapy Therapeutic Exercise Therapeutic Activities Neuromuscular Re-Ed Therapeutic Exercise Neuromuscular Re-Ed Therapeutic Exercise Neuromuscular Re-Ed Manual Therapy Therapeutic Exercise Manual Therapy Therapeutic Exercise Manual Therapy Therapeutic Exercise Neuromuscular Re-Ed Manual Therapy Therapeutic Exercise Neuromuscular Re-Ed Manual Therapy PT Re-evaluation Therapeutic Exercise Therapeutic Activities Manual Therapy Therapeutic Exercise Therapeutic Activities Manual Therapy Therapeutic Exercise Manual Therapy PT Evaluation Moderate Complexity Therapeutic Exercise Therapeutic Activities Manual Therapy Therapeutic Exercise Neuromuscular Re-Ed Manual Therapy Therapeutic Exercise Neuromuscular Re-Ed Manual Therapy Therapeutic Exercise Neuromuscular Re-Ed Manual Therapy Therapeutic Exercise Manual Therapy PT Evaluation Low Complexity Therapeutic Exercise Manual Therapy PT RE-EVALUATION THERAPEUTIC EXERCISES NEUROMUSCULAR RE-ED MANUAL THERAPY /COLD PACK ELECTRIC STIMULATION UNATT THERAPEUTIC EXERCISES NEUROMUSCULAR RE-ED MANUAL THERAPY /COLD PACK ELECTRIC STIMULATION UNATT THERAPEUTIC EXERCISES NEUROMUSCULAR RE-ED MANUAL THERAPY /COLD PACK ELECTRIC STIMULATION UNA THERAPEUTIC EXERCISES NEUROMUSCULAR RE-ED MANUAL THERAPY FUNC ACTIVITY 15 MIN /COLD PACK ELECTRIC STIMULATION UNATT THERAPEUTIC EXERCISES NEUROMUSCULAR RE-ED MANUAL THERAPY HOT/COLD PACK ELECTRIC STIMULATION UNATT THERAPEUTIC EXERCISES NEUROMUSCULAR RE-ED MANUAL THERAPY HOT/COLD PACK ELECTRIC STIMULATION UNATT THERAPEUTIC EXERCISES MANUAL THERAPY HOT/COLD PACK ELECTRIC STIMULATION UNATT PT EVALUATION THERAPEUTIC EXERCISES MANUAL THERAPY HOT/COLD PACK ELECTRIC STIMULATION UNATT PT RE-EVALUATION THERAPEUTIC EXERCISES NEUROMUSCULAR RE-ED MANUAL THERAPY FUNC ACTIVITY 15 MIN HOT/COLD PACK ELECTRIC STIMULATION UNATT THERAPEUTIC EXERCISES NEUROMUSCULAR RE-ED MANUAL THERAPY FUNC ACTIVITY 15 MIN HOT/COLD PACK ELECTRIC STIMULATION UNATT THERAPEUTIC EXERCISES NEUROMUSCULAR RE-ED MANUAL THERAPY FUNC ACTIVITY 15 MIN HOT/COLD PACK ELECTRIC STIMULATION UNATT THERAPEUTIC EXERCISES NEUROMUSCULAR RE-ED MANUAL THERAPY FUNC ACTIVITY 15 MIN HOT/COLD PACK ELECTRIC STIMULATION UNATT THERAPEUTIC EXERCISES NEUROMUSCULAR RE-ED MANUAL THERAPY FUNC ACTIVITY 15 MIN HOT/COLD PACK ELECTRIC STIMULATION UNATT THERAPEUTIC EXERCISES NEUROMUSCULAR RE-ED MANUAL THERAPY FUNC ACTIVITY 15 MIN HOT/COLD PACK ELECTRIC STIMULATION UNATT THERAPEUTIC EXERCISES NEUROMUSCULAR RE-ED MANUAL THERAPY HOT/COLD PACK ELECTRIC STIMULATION UNATT PT EVALUATION THERAPEUTIC EXERCISES NEUROMUSCULAR RE-ED PT RE-EVALUATION THERAPEUTIC EXERCISES NEUROMUSCULAR RE-ED MANUAL THERAPY FUNC ACTIVITY 15 MIN HOT/COLD PACK ELECTRIC STIMULATION UNATT THERAPEUTIC EXERCISES NEUROMUSCULAR RE-ED MANUAL THERAPY HOT/COLD PACK ELECTRIC STIMULATION UNATT PT EVALUATION THERAPEUTIC EXERCISES NEUROMUSCULAR RE-ED Advance Directives Directive Yes / No Effective Date File Name No Information Encounters Encounter Description Practice Location Reason(s) For Visit Diagnoses Date Provider Providers Copied on Encounter [facility], [address] [facility] [address] [facility] [address] [facility], [place], [place], [id number], tel:[phone] [place] No Information 5 [place]. Referring Provider: Vickey Smith, [address], [place], [address]. tel:[phone] [facility] [address], [place], [place], [address], [place] tel:[phone] [place] No Information 4 Tenzin Mcmahon. . Referring Provider: Royce Arana, [address] [place], [address]. tel:[phone] [facility] [address], [place], [place], [address], [place] tel:[phone] [place] No Information 4 Tenzin Mcmahon. . Referring Provider: Royce Arana, [address] [place], [address]. tel:[phone] [facility] [address] [facility] [address], [place], [place], [address], [place] tel:[phone] [place] No Information 3 Tenzin Mcmahon. . Referring Provider: Maribel May, [address] [facility] [address], [place], [address]. tel:[phone] [place] [address], [place], [place], [address], [place] tel:[phone] [place] No Information 0 3 Tenzin Mcmahon. . Referring Provider: Maribel May, [address] [facility] [address], [place], [address]. tel:[phone] [place] [address], [address], [place], [place], [address], [place] tel:[phone] [place] No Information Mar-1 6-202 3 Coltn Lisandro. . Referring Provider: Maribel May, [address] [place] [address] [address], [place], [address]. tel:[phone] [place] [address], [facility] [address], [place], [place], [address], [place] tel:[phone] [place] No Information Mar-1 3-202 3 Kln Lisandro. . Referring Provider: Maribel May, [address] [place] [address] [address], [place], [address]. tel:[phone] [place] [address], [address] [place], [place] [address], [place], [place], [address], [place] tel:[phone] [place] No Information Mar-0 8-202 3 Coltn Lisandro. . Referring Provider: Maribel May, [address] [place] [address] [address], [place], [address]. tel:[phone] [place] [address], [address], [place], [place], [address], [place] tel:[phone] [place] No Information Mar-0 6-202 3 Coltankush Mcmahon. . Referring Provider: Maribel May, [address] [place] [address] [address], [place], [address]. tel:[phone] [place] [address], [address], [place], [place], [address], [place] tel:[phone] [place] No Information Mar-0 1-202 3 Coltankush Mcmahon. . Referring Provider: Maribel May, [address] [place] [address] [address], [place], [address]. tel:[phone] [place] [address], [address], [place], [place], [address], [place] tel:[phone] [place] No Information b- 3 Klchayo Mcmahon. . Referring Provider: Maribel May, [address] [place] [address] [address], [place], [address]. tel:[phone] [place] [address], [address], [place], [place], [address], [place] tel:[phone] [place] No Information 3 Tenzin Mcmahon. . Referring Provider: Maribel May, [address] [place] [address] Rd [address], [place], [address]. tel:[phone] [place] [address], [address], [place], [place], [address], [place] tel:[phone] [place] No Information 3 Arin Lisandro. . Referring Provider: Maribel May, [address] [place] [address] [address], [place], [address]. tel:[phone] [place] [address], [address], [place], [place], [address], [place] tel:[phone] [place] No Information 3 Coltankush Mcmahon. . Referring Provider: Maribel May, [address] [place] [address] Rd [address], [place], [address]. tel:[phone] [place] [address] [address], [place], [place], [address], [place] tel:[phone] [place] No Information 3 Klchayo Mcmahon. . Referring Provider: Maribel May, [address] [place] [address] Rd [address], [place], [address]. tel:[phone] [place] [address] [address], [place], [place], [address], [place] tel:[phone] [place] No Information 3 Tenzin Mcmahon. . Referring Provider: Maribel May, [address] [place] [address] Rd [address], [place], [address]. tel:[phone] [place] [address], [address], [place], [place], [address], [place] tel:[phone] [place] No Information Apr-2 3-202 1 Garcia Didier. . Referring Provider: Sherry Velez [address], [place], [address]. tel:[phone] [place] [address], [address] [facility], [place], [place], [address], [place] tel:[phone] [place] No Information Apr-2 0-202 1 Garcia Didier. . Referring Provider: Sherry Velez [address], [place], [address]. tel:[phone] [place] [address], [address] [facility] [address], [place], [place], [address], [place] tel:[phone] [place] No Information Apr-1 6- 1 Garcia Didier. . Referring Provider: Sherry Velez [address], [place], [address]. tel:[phone] [place] [address], [address] [facility] [address], [place], [place], [address], [place] tel:[phone] [place] No Information Jan-1 2-202 1 Garcia Didier. . Referring Provider: Sherry Velez [address], [place], [address]. tel:[phone] [place] [address], [address] [facility] [address], [place], [place], [address], [place] tel:[phone] [place] symptoms and signs involving the musculoskelet al systemPain in right handStiffness of right hand, not elsewhere classifiedPar esthesia of skinCarpal tunnel syndrome, right upper limb 8 Román Wilson. [address] [facility], [address], [place], [address], [place]. tel:[phone] Referring Provider: Aydin Jacob, [address] [facility] [address], [place], [address]. tel:[phone] [facility] [address] [facility] [address] [facility], [place], [place], [address], [place] tel:[phone] [facility] symptoms and signs involving the musculoskelet al systemPain in right handStiffness of right hand, not elsewhere classifiedPar esthesia of skinCarpal tunnel syndrome, right upper limb 6201 8 Findeiss Kannan. . Referring Provider: Aydin Jacob, [address] [facility] [address], [place], [address]. tel:[phone] [facility] [address] [facility], [place], [place], [address], [place] tel:[phone] [facility] symptoms and signs involving the musculoskelet al systemPain in right handStiffness of right hand, not elsewhere classifiedPar esthesia of skinCarpal tunnel syndrome, right upper limb 9201 8 Findeiss Kannan. . Referring Provider: Aydin Jacob, [address] [facility] [address], [place], [address]. tel:[phone] [facility] [address] [facility], [place], [place], [address], [place] tel:[phone] [place] Pain in right kneeStiffness of right knee, not elsewhere classifiedOth symptoms and signs involving the musculoskelet al systemUnsp tear of unsp meniscus, current injury, right knee, subsOther specified postprocedura l states Apr-0 4-201 8 Rathdrum Claritza. [address] [facility], [address], [place], [address], [place]. tel:[phone] [facility], [place], [place], [address], [place] tel:[phone] [place] Pain in right kneeStiffness of right knee, not elsewhere classifiedOth symptoms and signs involving the musculoskelet al systemUnsp tear of unsp meniscus, current injury, right knee, subsOther specified postprocedura l states 8 Percy Claritza. [address] [place] [address], [address], [place], [address], [place]. tel:[phone] [facility] [address], [place], [place], [address], [place] tel:[phone] [place] No Information 8 Rathdrum Claritza. [address] [place] [address], [address], [place], [address], [place]. tel:[phone] [facility] [address], [place], [place], [address], [place] tel:[phone] [place] No Information 8 Percy Claritza. [address] [place] [address], [address], [place], [address], [place]. tel:[phone] [facility] [address], [place], [place], [address], [place] tel:[phone] [place] No Information 8 Rathdrum Claritza. [address] [place] [address], [address], [place], [address], [place]. tel:[phone] [facility] [address], [place], [place], [address], [place] tel:[phone] [place] No Information 8 Percy Claritza. [address] [place] [address], [address], [place], [address], [place]. tel:[phone] [facility] [address], [place], [place], [address], [place] tel:[phone] [place] No Information 8 Rathdrum Claritza. [address] [place] [address], [address], [place], [address], [place]. tel:[phone] [facility] [address], [place], [place], [address], [place] tel:[phone] [place] No Information 8 Rathdrum Claritza. [address] [place] [address], [address], [place], [address], [place]. tel:[phone] [facility], [address], [place], [place], [address], [place] tel:[phone] [place] No Information 8 Rathdrum Claritza. [address] [place] [address], [address], [place], [address], [place]. tel:[phone] [facility] [address], [place], [place], [address], [place] tel:[phone] [place] No Information 8 Rathdrum Claritza. [address] [place] [address], [address], [place], [address], [place]. tel:[phone] [facility] [address], [place], [place], [address], [place] tel:[phone] [place] No Information 8 Rathdrum Claritza. [address] [place] [address], [address], [place], [address], [place]. tel:[phone] [facility] [address], [place], [place], [address], [place] tel:[phone] [place] No Information 8 Rathdrum Claritza. [address] [place] [address], [address], [place], [address], [place]. tel:[phone] [facility] [address], [place], [place], [address], [place] tel:[phone] [place] No Information 8 Percy Claritza. [address] [place] [address], [address], [place], [address], [place]. tel:[phone] [facility] [address], [place], [place], [address], [place] tel:[phone] [place] No Information Dante-0 3-201 8 Rathdrum Claritza. [address] [place] [address], [address], [place], [address], [place]. tel:[phone], [place], [place], [address], [place] tel:[phone] [place] No Information Dec-2 8-201 7 Percy Claritza. [address] [place] [address], [address], [place], [address], [place]. tel:[phone] [place] [address] [address], [place], [place], [address], [place] tel:[phone] [place] No Information Dec-2 6-201 7 Percy Claritza. [address] [place] [address], [address], [place], [address], [place]. tel:[phone] [place] [address] [address], [place], [place], [address], [place] tel:[phone] [place] No Information Dec-2 2-201 7 Percy Claritza. [address] [place] [address], [address], [place], [address], [place]. tel:[phone], [place], [address], [place] tel:[phone] [place] No Information Dec-1 9-201 7 Rathdrum Claritza. [address] [place] [address], [address], [place], [address], [place]. tel:[phone], [place], [place], [address], [place] tel:[phone] [place] No Information Dec-1 4-201 7 Rathdrum Claritza. [address] [place] [address], [address], [place], [address], [place]. tel:[phone], [place], [place], [address], [place] tel:[phone] [place] No Information Dec-1 2-201 7 Percy Claritza. [address] [place] [address], [address], [place], [address], [place]. tel:[phone] [facility] [address], [place], [place], [address], [place] tel:[phone] [place] No Information 7 Percy Claritza. [address] [place] [address], [address], [place], [address], [place]. tel:[phone] [facility] [address], [place], [address], [place] tel:[phone] [place] No Information 7 Rathdrum Claritza. [address] [place] [address], [address], [place], [address], [place]. tel:[phone], [place], [place], [address], [place] tel:[phone] [place] No Information 7 Rathdrum Claritza. [address] [place] [address], [address], [place], [address], [place]. tel:[phone] [facility] [address], [place], [place], [address], [place] tel:[phone] [place] Pain in right kneeStiffness of right knee, not elsewhere classifiedOth symptoms and signs involving the musculoskelet al system 7 Percy Claritza. [address] [place] [address], [address], [place], [address], [place]. tel:[phone] [facility] [address], [place], [place], [address], [place] tel:[phone] [place] Unsp tear of unsp meniscus, current injury, right knee, subsOther specified postprocedura l states Nov 0 7 Rathdrum Claritza. [address] [place] [address], [address], [place], [address], [place]. tel:[phone] [facility] [address], [place], [place], [address], [place] tel:[phone] [place] No Information Jul-0 - 7 Parsons Jeff. , [place], [place]. Referring Provider: Marj Gonzáles [facility], [place], [address]. tel:[phone] [facility], [address] [facility] [address] [facility], [place], [place], [address], [place] tel:[phone] [place] No Information Jun-3 0 7 Parsons Jeff. , [place], [place]. Referring Provider: Marj Gonzáles [facility], [place], [address]. tel:[phone] [place] [address], [address] [facility], [place], [place], [address], tel:[phone] [place] No Information Jun-2 7 Parsons Jeff. , [place], [place]. Referring Provider: Marj Gonzáles [facility], [place], [address]. tel:[phone] [place] [address], [address], [place], [place], [address], [place] tel:[phone] [place] No Information Jun- 7 Gordon Jeff. , [place], [place]. Referring Provider: Marj Gonzáles [facility], [place], [address]. tel:[phone] [place] [address], [address], [place], [place], [address], [place] tel:[phone] [place] Unilateral primary osteoarthriti s, right knee Jun-0 2 7 Parsons Jeff. , [place], [place]. Referring Provider: Marj Gonzáles [facility], [place], [address]. tel:[phone] [facility], [address], [place], [place], [address], [place] tel:[phone] [place] No Information 3 Hyde Isabella. [address] [place] [address], [address], [place], [address], . tel:[phone] Referring Provider: Jim Landa [address] [place] [address] [address], [place], [address]. tel:[phone] [place] [address] [address], [place], [place], [address], [place] tel:[phone] [place] No Information 3 Brenda Keith. [address] [place] [address], [address], [place], [address], [place]. tel:[phone] Referring Provider: Teodoro Roberto [facility] [address], [place], [address]. tel:[phone] [place] [address], [place], [address], [place] tel:[phone] [place] No Information 3 Hyde Isabella. [address] [place] [address], [address], [place], [address], [place]. tel:[phone] Referring Provider: Teodoro Roberto [facility] [address], [place], [address]. tel:[phone] [place] [address] 300, [place], [place], [address], [place] tel:[phone] [place] No Information 3 Hyde Isabella. [address] [place] [address], [address], [place], [address], [place]. tel:[phone] Referring Provider: Teodoro Roberto [facility] [address], [place], [address]. tel:[phone] [place] [address], [address] [place] [address] [address], [place], [address], [place] tel:[phone] [place] No Information 3 Hyde Isabella. [address] [place] [address], [address] [place] [address], [address], . tel:[phone] Referring Provider: Jim Landa [address] [place] [address] [address], [place], [address]. tel:[phone] [place] [address], [id number], tel:[phone] [place] No Information Dec-0 9-201 3 Hyde Isabella. [address] [place] [address], [address], [place], [facility], . tel:[phone] Referring Provider: Jim Landa [address] [place] [address] [address], [place], [address]. tel:[phone] [place] [address], [id number], tel:[phone] [place] No Information Dec-0 6-201 3 Hyde Isabella. [address] [place] [address], [address], [facility], . tel:[phone] Referring Provider: Jim Landa [address] [place] [address] [address], [place], [address]. tel:[phone] [place] [address], [id number], tel:[phone] [place] Pain in joint involving shoulder region Dec-0 3-201 3 Hyde Isabella. [address] [place] [address], [address], [place], [facility], . tel:[phone] Referring Provider: Jim Landa [address] [place] [address] [address], [address]. tel:[phone] [place] [address], [id number], tel:[phone] [place] No Information Sep-1 1-201 3 Hyde Isabella. [address] [place] [address], [address], [place], [facility], . tel:[phone] Referring Provider: Jim Landa [address] [facility] [address], [place], [address]. tel:[phone], [id number], tel:[phone] [place] No Information Jul-0 5-201 3 Hyde Isabella. [address] [place] [address], [address], [place], [place], [facility], . tel:[phone] Referring Provider: Jim Landa [address] [facility] [address], [place], [address]. tel:[phone] [facility] [address] [place] [address], [id number], tel:[phone] [place] No Information Jul-0 3-201 3 Hyde Isabella. [address] [place] [address], [address], [place], [facility], . tel:[phone] Referring Provider: Jim Landa [address] [facility] [address], [place], [address]. tel:[phone] [facility] [address] [place] [address], [id number], tel:[phone] [place] No Information Jun-2 3 Hyde Isabella. [address] [place] [address], [address], [place], [facility], . tel:[phone] Referring Provider: Jim Landa [address] [facility] [address], [place], [address]. tel:[phone] [facility] [address] [place] [address], [id number], tel:[phone] [place] No Information Jun-2 3 Hyde Isabella. [address] [place] [address], [address], [place], [facility], . tel:[phone] Referring Provider: Jim Landa [address] [place] [address] [address], [place], [address]. tel:[phone] [facility], [address], [place], [place], [id number], [place] tel:[phone] [place] No Information 2-201 3 Hyde Isabella. [address] [place] [address], [address], [place], [address], [place]. tel:[phone] Referring Provider: Jim Landa, [address] [place] [address] [address], [place], [address]. tel:[phone] [place] [address], [address], [place], [place], [id number], [place] tel:[phone] [place] No Information Jun-2 1-201 3 Hyde Isabella. [address] [place] [address], [address], [place], [address], [place]. tel:[phone] Referring Provider: Jim Landa, [address] [place] [address] [address], [place], [address]. tel:[phone] [place] [address], [address], [place], [place], [id number], [place] tel:[phone] [facility] 5-201 3 Hyde Isabella. [address] [place] [address], [address], [place], [address], [place]. tel:[phone] Referring Provider: Jim Landa, [address] [place] [address] [address], [place], [address]. tel:[phone] [place], [place] [id number], [place], [place], [id number], [place] tel:[phone] [place] No Information Dec-2 0-201 3 Hyde Isabella. [address] [place] [address], [address], [place], [address], [place]. tel:[phone] Referring Provider: Daniele Almendarez, [address] [place], [address]. tel:[phone] [facility], [place], [place], [id number], tel:[phone] [place] No Information 0 6-201 3 Hydegeri Donahuei. [address] [facility], [facility] [address], [place], [address], . tel:[phone] Referring Provider: Daniele Almendarez [address] [facility] , [place], [address]. tel:[phone] [facility], [address], [place], [place], [id number], tel:[phone] [place] Pain in joint involving ankle and foot 2 8201 3 Hyde Isabella. [address] [facility], [facility] [address], [place], [address], . tel:[phone] Referring Provider: Daniele Almendarez [address] [facility] , [place], [address]. tel:[phone] Family History Family Member Type Diagnosis Age At Onset No Information Payers Payer name Insurance type Covered democrat ID Authoriza tion(s) Medicare [place] MB [id number] [facility] [place] [id number] Social History Type Description Quantity Date Captured Comments Alcohol Use Details Unknown Caffeine Use Details Unknown Tobacco Use Status Current non-smoker Smoking Status Never smoker Non-Smoking Tobacco Use Details : No Details Available : No Details Available Sex Female Chief Complaint And Reason For Visit No Information Reason For Referral Reason For Referral No Information Plan Of Treatment Date Type Action Status Appointment Jessica Barajas BOOKED History Of Present Illness Encounter Date Complaint History Of Prese nt Illness No Information Functional Status Date Functional Assessmen t No Information Instructions Date Instruction Additional Infor mation No Information Assessments Type Assessment Date No Information Patient Care Teams Name Effective Dates (start - stop) Status Members No Information
--- OUTSIDE RECORDS SUMMARY | 2025-02-03 10:26 | XMS_ITS | Continuity of Care Document ---
Author [place] [facility] [place] [address] [place] [address] Phone Care Team Providers Care Drum Attendant Name Role Phone Michael Rivas MD, FACS Unavailable Unavailab le Allergies, Adverse Reactions, Alerts Substance Reaction Status Criticality minocycline Active No Information codeine Active No Information Medications Medication Instructions Dosage Effective Dates (start - stop) Status Comments Miebo 100 % eye drops instill 1 drop by ophthalmic route 4 times every day into affected eye(s) 1.00 drop - Active gabapentin 600 mg tablet take 1 tablet by oral route 3 times every day 600 MG - Active Tylenol 325 mg tablet take 2 tablet by oral route every 6 hours as needed 650 MG - Active Restasis 0.05 % eye drops in a dropperette instill 1 drop by ophthalmic route every 12 hours into affected eye(s) 1.00 drop - Active esterified estrogens-methyltestos terone 0.625 mg-1.25 mg tablet take 1 tablet by oral route for 21 consecutive days, followed by 7 days off 1.00 tablet - Active fludrocortisone 0.1 mg tablet take 1 tablet by oral route every day 0.1 MG - Active Procedures Procedure Date No Charge Refraction Office/outpatient Visit, Est Contact Lens Check Office/outpatient Visit, Est No Charge Refraction No Charge Optomap Fundus Photos 023 Office/outpatient Visit, Est Contact Lens Fitting, Medical Superv Aug InflammaDry InflammaDry NEAR IFR 2IMG MIBMN GLND I&R Office/outpatient Visit, New Advance Directives Directive Yes / No Effective Date File Name No Information Encounters Encounter Description Practice Location Reason(s) For Visit Diagnoses Date Provider Providers Copied on Encounter [facility], [address] [place] [address] [address], [place], [place], [id number], tel:[phone] SEC Baltazar Knightkeelyabhay No Information 4 Rob Rodriguez. [address] [place], [place] [address], [address], [place], [place], [address], [place]. tel:[phone] Office/outpa tient Visit, [facility], [address], [place], [place], [id number], tel:[phone] SEC [place] Professional CL Check (chief complaint) Myopia, bilateral 3 Milton OD Becky. [address] [place] [address] [address], [address], [place], [place], [address], [place]. tel:[phone] Lauren Keith MD.Referrin g Provider: Becky Horton, [address], [place], [address]. tel:[phone] Office/outpa tient Visit, [facility], [address], [place], [place], [id number], [place] tel:[phone] SEC [place] Professional CL Check (chief complaint) Myopia, bilateralKera toconjunctivi tis sicca of both eyes due to decreased tear production 3 [place] OD Becky. [address], [address], [place], [place], [address], [place]. tel:[phone] Lauren Keith MD.Referrin g Provider: Becky Horton, [facility] [address], [place], [address]. tel:[phone] Office/outpa tient Visit, [facility], [address] [place] [address] [address], [place], [place], [id number], [place] tel:[phone] SEC Floyd [place] Professional ARIK FU CL Fitting (chief complaint) Myopia, bilateral Oct-0 3 Milton OD Becky. [address] [place] [address] [address], [address], [place], [place], [address], [place]. tel:[phone] Lauren Keith MD.Referrin g Provider: Becky Rose OD K, [address] [place] [address] [address], [place], [address]. tel:[phone] Office/outpa tient Visit, [facility], [address] [place] [address] [address], [place], [place], [id number], [place] tel:[phone] SEC Floyd CO[place] Professional dry eye evaluation (chief complaint) Keratoconjunc tivitis sicca of both eyes due to decreased tear productionMGD (meibomian gland dysfunction)C onjunctival chalasis, rightConjunct ival hyperemia of both eyes 3 [place] OD Becky. [address] [place] [address] [address], [address], [place], [place], [id number], [place]. tel:[phone] Lauren Keith MD.Referrin g Provider: Becky Rose OD K, [address] [place], [place] [address] [address], [place], [address]. tel:[phone] [facility], [address] [place] [address] [address], [place], [place], [address], [place] tel:[phone] SEC [place] No Information 3 Milton OD Becky. [address] [place] [address] [address], [address], [place], [place], [address], [place]. tel:[phone] Specialist: [place], [address] [facility] [address], [place], [address]. tel:[phone] Family History Family Member Type Diagnosis Age At Onset No Information Payers Payer name Insurance type Covered libertarian ID Faisal light(s) [place] F[place] BL [id number] Social History Type Description Quantity Date Captured Comments Alcohol Use Details Unknown Caffeine Use Details Unknown Tobacco Use Status No Information Smoking Status No Information Sex Female Chief Complaint And Reason For Visit No Information Reason For Referral Reason For Referral No Information Plan Of Treatment Date Type Action Status Goal Tobacco cessation counseling completed History Of Present Illness Encounter Date Complaint History Of Prese nt Illness CL Check The 63 year old patient presents for evaluation of CL Check in the right eye and left eye. Pt is wearing Acuvue CL in OU and pt states that the CL feels comfortable but pt states that vision seems a bit off but states that OD is the worse than OS but pt states that something feels off with OS as well with current CL. Pt is taking Restasis BID OU. CL Check The 63 year old patient presents for evaluation of CL Check in the right eye and left eye. Pt is wearing old CL coming in. Pt states new CL they couldn't see anything out of both of the pair of CL. Pt tried the other pair of CL they sent and Pt states OS was really good with them but OD was blurry. Pt is taking Restasis TID OU. Pt did put in new CL, Pt says new CL feels good. ARIK FU CL Fitting The 62 year ol d patient presents for evaluation of ARIK FU and CL Fitting in the right eye and left eye. Pt states they cant see very well when reading mostly more in OD. Pt also states burning in OU but more so in OD. dry eye evaluation The 62 year o ld patient presents for a Dry eye evaluation ou. Patient c/o her eyes burn. Patient uses Restasis bid ou. Patient has hx of using serum tears with no improvement. Speed score 5/28. Patient has had hx of plugs and lipoflow. Patient wears soft contacts. Patient wears Toric contacts B&L Ultra. Functional Status Date Functional Assessmen t No Information Instructions Date Instruction Additional Infor lunaion Impression/Plan Impression/Plan Impression/Plan Assessments Type Assessment Date No Information Patient Care Teams Name Effective Dates (start - stop) Status Members No Information
== END 2025-02-03 10:24 | disposition home or self-care (01) ==
PROVIDERS: PCP Family Medicine; Visit Provider Obstetrics & Gynecology
DX: Z12.31 Encounter for screening mammogram for malignant neoplasm of breast (principal)
CPT/HCPCS: 77063; 77067